=== PATIENT | female | born 1975 | race Caucasian/White ===

== ENCOUNTER → 2020-03-11 13:20 | Outpatient (BNVA) | payer MEDICAID, SELFPAY | PROVIDERS: PCP Internal Medicine; Referring Provider Internal Medicine; Visit Provider Internal Medicine | DX: R07.2 Precordial pain (principal); R94.39 Abnormal result of other cardiovascular function study; I10 Essential (primary) hypertension | CPT/HCPCS: 99204 ==

== ENCOUNTER → 2020-05-27 12:59 | Outpatient (BNVA) | payer MEDICAID, OTHER, SELFPAY | PROVIDERS: PCP Internal Medicine; Referring Provider Internal Medicine; Visit Provider Internal Medicine | DX: R07.2 Precordial pain (principal); R94.39 Abnormal result of other cardiovascular function study; I10 Essential (primary) hypertension; E78.5 Hyperlipidemia, unspecified | CPT/HCPCS: 99212 ==

== ENCOUNTER 2020-12-08 10:53 | Outpatient (REF) | payer MEDICAID, OTHER, SELFPAY ==
--- NOTE | ~2020-12-08 | US_ITS ---
EXAMINATION: ULTRASOUND PELVIS AND TRANSVAGINAL CLINICAL INFORMATION: Left lower quadrant pain. COMPARISON: Ultrasound pelvis 02/21/2020. TECHNIQUE: Transabdominal and transvaginal imaging of pelvis was performed. FINDINGS: On transabdominal ultrasound the uterus is surgically absent. The right ovary has been surgically removed. The left ovary measures 5.9 x 3.3 x 3.8 cm and volume 38.7 mL. There is a septated cyst within measuring 4.9 x 2.8 cm. There is no free fluid in cul-de-sac. US/US pelvic and transvaginal IMPRESSION: Right ovary and uterus have been surgically removed. There is a septated cyst left ovary. There is no free fluid in the cul-de-sac.
== END 2020-12-08 10:54 | disposition home or self-care (01) ==
LOC: HO.US 10:53
PROVIDERS: PCP Nurse Practitioner Community Health; Visit Provider Nurse Practitioner Community Health
DX: R10.32 Left lower quadrant pain (principal)
CPT/HCPCS: 76830; 76856